=== PATIENT | female | born 1950 | race Caucasian/White ===

== ENCOUNTER 2017-05-23 07:08 | Inpatient (IN) | payer BC ==
[~2017-05-23] VITALS: Ht 172.7 cm; Wt 86.0 kg
--- NOTE | ~2017-05-23 | CO ---
Unit #: [id number] #: [id number] Patient: JOHN FARFAN [id number] [address] [place], [place] [address] [id number] MR#: [id number] NAME: JOHN FARFAN ROOM: 568 Age: 66 Sex: F Admission Date: 05/23/2017 : 1950 Attending Physician: Dayton Acuna M.D. Primary Care Physician: Primary Care Physician No Consultation Date: 05/24/2017 CONSULTATION REPORT PRIMARY CARE PHYSICIAN John Alonzo M.D. REASON FOR CONSULTATION Severe anemia, please evaluate. HISTORY OF PRESENT ILLNESS Ms. John Mercer is a 66-year-old with a history of coronary artery disease, hypertension, type 2 diabetes, who was admitted to the hospital with chest pain and acute shortness of breathing on 05/23/2017. Apparently, on the night of 05/23/2017, she woke up with feeling smothered with a dry cough. She has since had a cardiac catheterization and is scheduled for having a transesophageal echocardiogram tomorrow. Ms. Mercer tells me that she has a long history of anemia and more recently has been eating ice, has started herself on iron tablets, which she takes 2 or 3 times a day. She has had a colonoscopy in the remote past with no significant abnormality identified when she was around 42 years old. Her CBC at the time of admission showed a white count of 6.4, hemoglobin is 8.4, MCV 70.1, her platelet count is 276,000. She has a long history of ice craving. No history of melena or hematochezia. She did have a hemorrhoidectomy 2 years ago, at which point, she was advised to have a colonoscopy, but never did. She has been taking B12 along with metformin for type 2 diabetes, which she has been taking for several years. PAST MEDICAL HISTORY Coronary artery disease, medically managed to this point with a history of mitral and tricuspid regurgitation, pulmonary hypertension. Other medical problems include hypertension, type 2 diabetes mellitus, and hyperlipidemia. PAST SURGICAL HISTORY Includes tubal ligation and breast augmentation. FAMILY HISTORY Negative for blood disorders. SOCIAL HISTORY Quit smoking 4 years ago after smoking 1 or 2 packs a day. She smokes e-cigarettes and currently uses a 3 mg nicotine level, which she plans to discontinue. She drinks one cocktail on a daily basis. REVIEW OF SYSTEMS Fourteen point review of systems was taken. CONSTITUTIONAL: No recent changes in appetite or weight. In fact, she Unit #: [id number] #: [id number] Patient: JOHN FARFAN has gained some weight. EYES: Negative. EARS, NOSE, MOUTH, AND THROAT: Negative. CARDIOVASCULAR: As discussed. RESPIRATORY: Shortness of breathing as discussed. GASTROINTESTINAL: Negative. GENITOURINARY: Negative. ALLERGIC: Negative. LYMPHATIC: Negative. PSYCHIATRIC: Negative. ENDOCRINE: Type 2 diabetes. PHYSICAL EXAMINATION GENERAL: She is a pleasant, middle-aged woman, lying in bed, currently in no distress. VITAL SIGNS: Temperature is 97.9, pulse is 94, respirations 18, blood pressure 151/74, O2 saturation 96% on room air. Accu-Chek was 123. HEENT: Shows mild pallor. No icterus. Pupils are equal and reactive well to light. Mucous membranes are moist. NECK: Without adenopathy, JVD, or thyromegaly. CARDIOVASCULAR: First and second heart sounds are heard and regular without gallops or rubs. She has a soft systolic murmur. LUNGS: Chest expansion is symmetric. Bilateral equal air entry with normal breath sounds. ABDOMEN: Soft and nontender. Bowel sounds are active. No organomegaly. EXTREMITIES: Right arm is bandaged right radial catheterization. Warm with good pulses. No edema, cyanosis or clubbing. NEUROLOGIC: She is awake, alert, and oriented x3 without any focal findings. SKIN: Negative. PSYCHIATRIC: Normal affect. LYMPHATIC: No palpable lymph nodes. DIAGNOSTIC STUDIES LABORATORY RESULTS: CBC today shows a white count of 6.4, hemoglobin is 8.4, platelet count 276,000. MCV 70.1. Basic metabolic panel shows a BUN of 12, creatinine is 0.8. Cholesterol is 126 with an LDL of 39. ASSESSMENT AND PLAN Ms. John Mercer is a 66-year-old with a history of coronary artery disease, admitted with acute heart failure, who has had a repeat cardiac catheterization. She is also severely anemic with microcytic indices with a history of ice craving all of which suggest iron deficiency anemia. In view of her longer metformin usage, B12 deficiency may also be an additional factor to consider, although she has been taking B12 on an intermittent basis. I discussed with her several issues including that she requires upper and lower endoscopy for a GI source of blood loss given her severe iron deficiency anemia, which I will confirm. She is reluctant to have a colonoscopy because of the prep needed and we discussed about alternate methods and I will consult GI to be done as an outpatient. She additionally reports severe headaches for the past several weeks and wonders whether she could have an aneurysm which her father apparently from. I discussed this with her, some of this could be related to the nitroglycerin used for treatment of a heart disease and possibly even iron-deficient anemia be a factor. If headaches persist, I think it will certainly be reasonable to proceed ahead with imaging. RECOMMENDATIONS Unit #: [id number] #: [id number] Patient: JOHN FARFAN 1. Iron studies and B12 to confirm the diagnosis of iron deficiency anemia. 2. Ferrlecit 250 mg IV daily for 2 days with plans to discharge her home on ferrous sulfate mg p.o. t.i.d. 3. Follow up in the office in 2 weeks to evaluate for response to for outpatient GI consultation for endoscopy. Thank you for allowing me to participate in her care. Dictated by... Haseeb Golden/ana paula TD: 05/25/2017 05:55 JOB #: [id number] CC: John Alonzo M.D. CONSULTATION REPORT Page 1 of 1 X Cornelio Bashir MD X CONSULTATION REPORT
--- NOTE | ~2017-05-23 | EKG ---
PATIENT: JOHN FARFAN UNIT #: [id number] Ventricular Rate: 68 BPM Atrial Rate: 68 BPM P-R Interval: 124 ms QRS Duration: 74 ms Q-T Interval: 476 ms QTC Calculation(Bezet): 506 ms P [place]: 46 degrees Calculated R [place]: 54 degrees Calculated T [place]: 42 degrees Diagnosis Line: Sinus rhythm with occasional Premature ventricular Diagnosis Line: complexes Diagnosis Line: Otherwise normal ECG Diagnosis Line: When compared with ECG of 07-JUL-2011 07:04, Diagnosis Line: Premature ventricular complexes are now Present Diagnosis Line: Nonspecific T wave abnormality now evident in Diagnosis Line: Inferior leads Diagnosis Line: Nonspecific T wave abnormality, improved in Diagnosis Line: Lateral leads Diagnosis Line: QT has lengthened Diagnosis Line: Confirmed by TAHIRA LARA MD ([id number]) on 05/23/2017 Diagnosis Line: 5:00:58 PM INTERPRETING MD: JANE SHEEHAN
--- NOTE | ~2017-05-23 | HP ---
Unit #: [id number] #: [id number] Patient: JOHN FARFAN [id number] [facility]. [place] [address] [facility]. [place], [place] [address] [id number] I MR#: [id number] NAME: JOHN FARFAN ROOM: 568 Age: 66 Sex: F Admission Date: 05/23/2017 : 1950 Attending Physician: Dayton Acuna M.D. Primary Care Physician: Primary Care Physician No HISTORY AND PHYSICAL REASON FOR ADMISSION Acute CHF. HISTORY OF PRESENT ILLNESS The patient is a 66-year-old, female, who is an office patient of Dr. Acuna, has a history of cardiac cath after stress test in 2010 that showed mzqq-gp-pfuizeia nonobstructive CAD. Her EF at that time was normal. She had an echocardiogram in our office in March, that showed some moderate mitral valve regurgitation with normal LV function. Yesterday, she had come to an appointment in the office and her blood pressure was 195/80 and she was restarted on Lasix 20 mg daily and lisinopril was increased to twice a day to help control her blood pressure. The patient had not picked up her prescriptions yet. Last night around 1:00 in the morning, she woke up. She felt short of breath. She had significant orthopnea smothering and she has had dry cough for the last two weeks. The patient has risk factors for her heart disease, such as diabetes, hyperlipidemia, and hypertension. The patient complains that since early this morning she has been having a tight banding sensation around the diaphragm area. She also has a history of breast augmentation. Her blood pressure here in the emergency room on arrival was 194/85. PAST MEDICAL HISTORY Significant for coronary artery disease. At that time, she had a distal left main of 40%, proximal circumflex 30% to 40%, ostial LAD 30%, right coronary artery 25% to 30%, moderate mitral valve regurgitation, ejection fraction of 60%, hypertension, diabetes, hyperlipidemia, tubal ligation, breast augmentation as well as mild pulmonary hypertension. SOCIAL HISTORY Tobacco use. She now uses e-cigarette, but it does have nicotine. She drinks one alcoholic beverage a day, which consists of whiskey and Pepsi. No illicit drug use. FAMILY HISTORY Father and mother both have a history of cardiac disorders. DIAGNOSTICS EKG shows sinus rhythm with a single PVC. No significant ST changes. Chest x-ray showed interstitial prominence and cardiomegaly. White blood cell count 7.7, hemoglobin 9.3, hematocrit 29, and platelet count 310. Sodium 142, potassium 3.2, chloride 101, CO2 of 27, BUN 10, creatinine 0.9, glucose 133, BNP 584. Troponin negative x1. Lactic acid is elevated at 2.4. Unit #: [id number] #: [id number] Patient: JOHN FARFAN REVIEW OF SYSTEMS Complains of shortness of breath, orthopnea, and chest tightness. No fever, chills, nausea, vomiting, diarrhea, palpitations, syncope, near syncope, numbness, tingling, or changes in visual field. All other review of systems is negative. PHYSICAL EXAMINATION GENERAL: The patient is awake and alert. No acute distress. Color is pink. SKIN: Warm and dry. VITAL SIGNS: Afebrile, heart rate 83, and blood pressure 194/85. HEENT: Normal carotid upstrokes. No auscultated bruit. Negative JVD. Lying supine. Negative hepatojugular reflux. Pupils are equal, round, and reactive. CHEST: Respirations are regular, unlabored at rest. Bilateral breath sounds, decreased air entry but no rales are heard. HEART: Heart sounds are distant due to breast augmentation. ABDOMEN: Soft, nontender, and nondistended. Positive bowel sounds in all 4 quadrants. No ascites noted. EXTREMITIES: Bilateral lower extremities have no pretibial pitting edema. DP/PT pulses are 2+. Cap refill less than 3 seconds. NEUROLOGIC: No focal, motor, or sensory deficits. IMPRESSION 1. Acute diastolic congestive heart failure. 2. Moderate mitral regurgitation. 3. History of moderate nonobstructive disease on cardiac cath in 2010. 4. Uncontrolled hypertension. 5. Diabetes mellitus. 6. Hyperlipidemia. 7. Mild pulmonary hypertension on recent echo with EF of 60%. PLAN The patient will be admitted for observation. We will replace potassium today. Give IV diuretics x2 doses, then change back to p.o. We will add topical nitrate and hydralazine for blood pressure control. Monitor trend of cardiac enzymes to rule out DC aspirin 81 mg daily. She needs strict I and O, fluid restriction, and 2 g sodium diet. She does not increase her lisinopril yet. I will increase that here in the hospital. We will hold metformin for cath and start on low-dose sliding scale insulin as needed with a.c. and at bedtime Accu-Cheks. I have discussed with the patient the recommendation of left and right coronary angiography to assess mitral valve and rule out coronary artery disease. The risks and benefits of procedures such as allergy, arrhythmia, DC, CVA, bleeding, and have been discussed. The patient is agreeable. We will plan tomorrow. Dictated by Estelita Howell APRN for Haseeb Rogers/ana paula TD: 05/24/2017 07:06 JOB #: [id number] Unit #: [id number] #: [id number] Patient: JOHN FARFAN HISTORY AND PHYSICAL Page 1 of 1 X X HISTORY AND PHYSICAL
--- NOTE | ~2017-05-23 | EKG ---
PATIENT: JOHN FARFAN UNIT #: [id number] Ventricular Rate: 65 BPM Atrial Rate: 65 BPM P-R Interval: 130 ms QRS Duration: 80 ms Q-T Interval: 486 ms QTC Calculation(Bezet): 505 ms P Sterling: 55 degrees Calculated R Sterling: 62 degrees Calculated T Sterling: 51 degrees Diagnosis Line: Normal sinus rhythm Diagnosis Line: Prolonged QT Diagnosis Line: Abnormal ECG Diagnosis Line: When compared with ECG of 23-MAY-2017 07:49, Diagnosis Line: Premature ventricular complexes are no longer Diagnosis Line: Present Diagnosis Line: Confirmed by TAHIRA LARA MD ([id number]) on 05/30/2017 Diagnosis Line: 7:26:41 AM INTERPRETING MD: JANE SHEEHAN
--- NOTE | ~2017-05-23 | HP ---
Unit #: [id number] #: [id number] Patient: JOHN FARFAN [id number] [address] [place], [place] [address] [id number] I MR#: [id number] NAME: JOHN FARFAN ROOM: [id number] Age: 66 Sex: F Admission Date: 05/23/2017 : 1950 Attending Physician: Dayton Acuna M.D. Primary Care Physician: No Primary Care Physician HISTORY AND PHYSICAL REASON FOR ADMISSION Acute CHF. HISTORY OF PRESENT ILLNESS The patient is a 66-year-old female, who is an office patient of Dr. Acuna, has a history of cardiac cath after a stress test in 2010 that showed tmfl-oy-rjycphad nonobstructive CAD. Her EF at that time was normal. She had an echocardiogram in our office in March that showed some moderate mitral valve regurgitation with normal LV function. Yesterday, she had come to an appointment in the office and her blood pressure was 195/80, and she was restarted on Lasix 20 mg daily and lisinopril was increased to twice a day to help control her blood pressure. Patient had not picked up her prescriptions yet. Last night around 1 o'clock in the morning, she woke up. She felt short of breath. She had significant orthopnea, smothering and she has had a dry cough for the last two weeks. Patient has risk factors for heart disease such as diabetes, hyperlipidemia, and hypertension. Patient complains that since early this morning she has been having a tight banding sensation around her chest, around the diaphragm area. Her blood pressure here in the emergency room on arrival was 194/85. PAST MEDICAL HISTORY 1. Coronary artery disease. At that time, she had a distal left main at 40%, proximal circumflex 30% to 40%, ostial LAD 30%, right coronary artery 25% to 30%, moderate mitral valve regurgitation, ejection fraction 60%. 2. Hypertension. 3. Diabetes. 4. Hyperlipidemia. 5. Tubal ligation. 6. Breast augmentation. 7. Mild pulmonary hypertension. SOCIAL HISTORY Tobacco use. She now uses E-cigarette, but it does have nicotine. She drinks one alcoholic beverage a day which consists of whiskey and Pepsi. No illicit drug use. FAMILY HISTORY Father and mother both have a history of cardiac disorders. DIAGNOSTIC STUDIES LABORATORY: White blood cell count 7.7, hemoglobin 9.3, hematocrit 29, platelet count 310,000. Sodium 142, potassium 3.2, chloride 101, CO2 of Unit #: [id number] #: [id number] Patient: JOHN FARFAN 27, BUN 10, creatinine 0.9, glucose 133. BNP 584. Troponin negative x1. Lactic acid is elevated at 2.4. IMAGING: Chest x-ray showed interstitial prominence and cardiomegaly. CARDIOVASCULAR: EKG shows sinus rhythm with a single PVC, no significant ST changes. REVIEW OF SYSTEMS Complaint of shortness of breath, orthopnea, and chest tightness. No fever, chills, nausea, vomiting, diarrhea, palpitations, syncope, near syncope, numbness, tingling, or changes in visual field. All other review of symptoms is negative. PHYSICAL EXAMINATION GENERAL: Patient is awake and alert, no acute distress. SKIN: Color is pink. Skin is warm and dry. VITAL SIGNS: Afebrile, heart rate 83, blood pressure 194/85. HEENT: Pupils equal, round, and reactive. Normal carotid upstrokes. No auscultated bruits. Negative JVD lying supine. Negative hepatojugular reflux. CHEST: Respirations are regular, unlabored at rest. Bilateral breath sounds are decreased air entry but no rales are heard. HEART: S1, S2. Regular rate and rhythm. No murmurs, rubs, or gallops. Heart sounds distant due to breast augmentation. ABDOMEN: Soft, nontender, nondistended. Positive bowel sounds x4 quadrants. No ascites noted. EXTREMITIES: Bilateral lower extremities have no pretibial pitting edema. DP/PT pulses are 2+. Capillary refill less than 3 seconds. NEUROLOGIC: No focal motor or sensory deficits. IMPRESSION 1. Acute diastolic congestive heart failure. 2. Moderate mitral regurgitation. 3. History of moderate nonobstructive disease on cardiac cath in 2010. 4. Uncontrolled hypertension. 5. Diabetes mellitus. 6. Hyperlipidemia. 7. Mild pulmonary hypertension on recent echo with ejection fraction of 60%. PLAN Patient will be admitted for observation. Will replace potassium today. Give IV diuretics x2 doses, then change back to p.o. Will add topical nitrate and hydralazine for blood pressure control. Monitor, trend cardiac enzymes to rule out [place]. Aspirin 81 mg daily. She needs strict I and O, fluid restriction, and 2 g sodium diet. She has not increased her lisinopril yet. I will increase that here in the hospital. Will hold metformin for cath and start on low-dose sliding scale insulin as needed with a.c. and at bedtime Accu-Cheks. Discussed with the patient the recommendation of left and right coronary angiography to assess mitral valve and rule out coronary artery disease. The risks and benefits of procedure such as allergy, arrhythmia, myocardial infarction, cerebrovascular accident, bleeding, and have been discussed. Patient is agreeable. Will plan tomorrow. Unit #: [id number] #: [id number] Patient: JOHN FARFAN Dictated by Estelita Hwoell APRN for Haseeb Rogers TD: 05/23/2017 13:44 JOB #: [id number] HISTORY AND PHYSICAL Page 1 of 1 X X HISTORY AND PHYSICAL
--- NOTE | ~2017-05-23 | DS ---
Unit #: [id number] #: [id number] Patient: JOHN FARFAN [id number] [address] [address] [id number] I MR#: [id number] NAME: JOHN FARFAN ROOM: 568 Age: 66 Sex: F Admission Date: 05/23/2017 : 1950 Discharge Date: 05/25/2017 Attending Physician: Dayton Acuna M.D. Primary Care Physician: Primary Care Physician No DISCHARGE SUMMARY DISCHARGE DIAGNOSES 1. Acute pulmonary edema secondary to uncontrolled hypertension and mitral regurgitation, resolved. 2. Tpcsxpvv-rc-zoomra mitral regurgitation per ETDDY on 05/25/2017. 3. Mild pulmonary hypertension. 4. Hypertension. 5. Hyperlipidemia. 6. Diabetes mellitus type 2. 7. Status post cardiac cath on 05/24/2017, which showed non-obstructive coronary artery disease, djilumlc-nk-hlsgzs pulmonary hypertension, elevated PAP 59/22 mmHg. 8. TEDDY on 05/25/2017 showed mezsyrzp-be-mbxyli mitral regurgitation, EF 60%, and severe atherosclerotic plaque in aorta. 9. New diastolic congestive heart failure. 10. Anemia, anemia workup in progress. DISCHARGE MEDICATIONS Aspirin 81 mg p.o. once a day, calcium carbonate with vitamin D3 tablets one p.o. once a day, potassium chloride 20 mEq p.o. once a day, metformin 500 mg p.o. t.i.d., omega 3 fish oil one tablet p.o. daily, Pravachol 80 mg p.o. at bedtime, Norvasc 5 mg p.o. daily, Lopressor 50 mg p.o. b.i.d., Lasix 40 mg p.o. daily, lisinopril 40 mg p.o. at bedtime, Synthroid 175 mcg p.o. daily, vitamin B complex one tablet p.o. once a day, Rocaltrol 0.25 mcg p.o. t.i.d. HOSPITAL COURSE This is a 66-year-old female who is a patient of Dr. Acuna and was last seen in his office earlier this week on Sunday or Sunday. She has a prior history of a cardiac cath in 2010 that showed xaby-eb-afkggtuh non-obstructive coronary artery disease with a normal EF. ECG done in our office in March showed some moderate mitral valve regurgitation with normal LVF. On 05/22, she came for an appointment in our office and her blood pressure was elevated at 195/80. At that time, she was restarted on her diuretic and her CAR inhibitor was increased to twice a day. The patient states she had been off her diuretic for about 2 weeks because her pharmacy told her it was on back order. The night before admission to the hospital, she woke up with shortness of breath and orthopnea. She also reported a tight banding sensation around her diaphragm area. Her blood pressure in the ER was elevated 194/85. She was admitted for further evaluation and her medications were adjusted. She was diuresed with Lasix 40 mg IV. Her CAR inhibitor and beta-fang were increased. On 05/24, she underwent a cardiac cath, which showed LAD with no significant stenosis, left circumflex is normal, left main distal is 30%, RCA mid 50%. Unit #: [id number] #: [id number] Patient: JOHN FARFAN In addition, she had elevated pulmonary artery pressures 59/22 mmHg and qlnxbowq-qw-klevnn pulmonary hypertension. On 05/25, she underwent a TEDDY to evaluate her valve function. TEDDY revealed an EF of 60% and ztfqhylz-kg-bwakzy mitral regurgitation as well as severe atherosclerotic plaque in her aorta. Today, her breathing is improved. She has no shortness of breath and is chest pain free. She will be discharged home. She is to follow up with Dr. Bashir as outpatient for anemia workup. She is to follow up with Dr. Canas with Cardiovascular Surgery for evaluation of her mitral valve. We spoke with Dr. Canas's office and they are going to contact her to schedule an outpatient appointment. PHYSICAL EXAMINATION VITAL SIGNS: Temperature 98.2, heart rate 88, respiratory rate 16, and blood pressure 126/78. GENERAL: This is an alert and oriented, pleasant 66-year-old female, sitting up in chair, in no acute distress. CARDIOVASCULAR: S1 and S2. Regular rate and rhythm. LUNGS: Clear, diminished at the bases. Nonlabored respirations. ABDOMEN: Soft, nontender, and nondistended. EXTREMITIES: Pulses are palpable. No pedal edema. Right wrist is bruised and soft with no hematoma. NEUROLOGIC: Alert and oriented x3. No neuro deficits noted. DIAGNOSTIC STUDIES LABORATORY RESULTS: Glucose 88, BUN 12, creatinine 0.7, sodium 140, potassium 3.4, chloride 99, magnesium 1.2. Lipid profile; cholesterol 126, triglycerides 69, LDL 39, HDL 73. Hemoglobin 7.9, hematocrit 24.6, white blood cell count 6, and platelets 269. IMAGING RESULTS: Chest x-ray shows emphysema and cardiomegaly. CARDIOVASCULAR STUDIES: EKG shows normal sinus rhythm with a ventricular rate of 65. TEDDY on 05/25/2017 showed EF 60%, lcsvgwun-dd-ppmbqj mitral regurgitation, and severe atherosclerotic plaque in aorta. DISCHARGE INSTRUCTIONS 1. The patient will be discharged to home today. 2. The patient is to follow up with Dr. Bashir in 10 days. 3. Follow up with Dr. Acuna in his office on Sunday, June 25 at 3:00 p.m. 4. Follow up with Dr. Canas. Call his office for an appointment. 5. Post cath instructions given to the patient. 6. Medications per discharge medication rec sheet. Prescriptions were provided to the patient as needed. Dictated by... Snehal Torres APRN for Haseeb Rogers/ana paula TD: 05/28/2017 09:32 JOB #: [id number] Unit #: [id number] #: [id number] Patient: JOHN FARFAN DISCHARGE SUMMARY Page 1 of 1 X X DISCHARGE SUMMARY
--- NOTE | ~2017-05-23 | CR72 ---
[facility]. [facility] A Service of [facility] & [facility] RADIOLOGY TEXT RESULTS PATIENT: JOHN FARFAN LOCATION: [facility] [id number] : [birth year] UNIT #: [id number] AGE: [address]: Dayton Acuna MD SEX: F ORDER DR: [id number] [facility] [address] [place], [place] [address] [id number] MR#: [id number] #: [id number] NAME: JOHN FARFAN : 1950 SEX: F STUDY DATE/TIME: 05/23/2017 7:49 [facility] ROOM: [id number] STUDY DESCRIPTION: CR Chest Single View Portable Attending Physician: Dayton Acuna M.D. Ordering Physician: Tramaine Osullivan M.D. Primary Care Physician: Primary Care Physician No MEDICAL IMAGING REPORT This report is preliminary unless electronic signature is present EXAM Portable chest 05/23 INDICATIONS For history of this morning. Former smoker. FINDINGS AP portable chest was obtained. No comparison. The heart is enlarged. There is emphysema. Bibasilar interstitial prominence could be due to a developing edema or perhaps fibrosis. Comparison with any prior studies would be useful. There are calcified bilateral breast implants. There is no pneumothorax. 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 IMPRESSION Emphysema and cardiomegaly. Interstitial prominence in the bases could reflect early edema but could also reflect fibrosis as I have no comparisons. No pneumothorax. Dictated by... Michael Tobias Jr., M.D. THIS IS AN ELECTRONICALLY VERIFIED REPORT Michael Tobias Jr., M.D. at 05/23/2017 3:38 PM VERN/freddy TD: 05/23/2017 13:42 JOB #: [id number] MEDICAL IMAGING REPORT Page 1 of 1 COPY
[~2017-05-23 07:08] MED LIST: ASPIRIN81 M1 PO; ATARAX PO; CALCITRIOL PO; CALCITRIOL0.25 MCG PO; CALCIUM 500 + D1 TAB PO; CHOLESTEROL PILL; CLONIDINE PO; DARVOCET-N 1001 TAB PO; KEFLEX PO; LEVOTHROID137 MCG PO; LISINOPRIL20 MG PO; LOTREL 5/20 MG1 CAP PO; METFORMIN PO; PRAVASTATIN SOD40 MG PO; SYNTHROID PO
[2017-05-23 08:10] LABS: BASOPHIL# 0.1 X10e3 (0-0.3); BASOPHIL% 0.8 % (0-2.5); EOSINOPHIL# 0.2 X10e3 (0-0.7); EOSINOPHIL% 2.1 % (0.0-7.0); HEMOGLOBIN 9.3 gm/dL (12.0-16.0); LYMPHOCYTE# 1.4 X10e3 (1.0-3.5); LYMPHOCYTE% 18.2 % (17.0-45.0); MEAN CELL VOLUME 70.6 FL (83-96); MEAN CORPUSCULAR HEMOGLOBIN 22.6 PG (28-34); MEAN PLATELET VOLUME 8.5 FL (6.5-11.5); MONOCYTE# 0.7 X10e3 (0-1.0); MONOCYTE% 9.1 % (3.0-12.0); NEUTROPHIL# 5.4 X10e3 (1.5-7.1); NEUTROPHIL% 69.8 % (40-75); PLATELET COUNT 310 X10e3 (140-420); RED BLOOD COUNT 4.11 X10e (3.90-5.30); RED CELL DISTRIBUTION WIDTH 18.3 % (11.0-15.5); WHITE BLOOD COUNT 7.7 X10e3 (4.0-10.5)
[2017-05-23 08:11] LABS: DIFF IND NO
[2017-05-23 08:15] LABS: POC - CKMB 1.6 ng/mL (0.0-7.9); POC - TROPONIN <0.05 ng/mL (<=0.05)
[2017-05-23 08:38] LABS: ALBUMIN SERUM 3.9 g/dL (3.5-5.0); BILIRUBIN, DIRECT 0.1 mg/dL (0.0-0.2); BILIRUBIN,INDIRECT 0.8 mg/dL (0.0-0.9); BILIRUBIN,TOTAL 0.9 mg/dL (0.2-2.0); BUN/CREATININE RATIO 11.11; CALCIUM SERUM 8.1 mg/dL (8.4-10.2); CREATININE SERUM 0.9 mg/dL (0.6-1.4); GLOM FILT RATE Estimated 67.6 mL/min (>60); POTASSIUM 3.2 mmol/L (3.5-5.1); PROTEIN TOTAL SERUM 6.9 g/dL (6.0-8.3)
[2017-05-23] MEDS ORDERED: SYNTHROID175 MCG PO (11:08)
[2017-05-23] MEDS ORDERED: PATIENT'S PHARMACY (11:08)
[2017-05-23] MEDS ORDERED: LISINOPRIL PO (11:09)
[2017-05-23] MEDS ORDERED: METFORMIN PO (11:09)
[2017-05-23] MEDS ORDERED: CALCITRIOL0.25 MCG PO (11:09)
[2017-05-23] MEDS ORDERED: PRAVACHOL PO (11:09)
[2017-05-23] MEDS ORDERED: LOPRESSOR PO (11:09)
[2017-05-23] MEDS ORDERED: ASPIRIN81 M2 PO (11:10)
[2017-05-23] MEDS ORDERED: B COMPLEX1 EACH PO (11:10)
[2017-05-23] MEDS ORDERED: FISH OIL300 MG PO (11:10)
[2017-05-23] MEDS ORDERED: LASIX20 MG PO (11:10)
[2017-05-23] MEDS ORDERED: CALCIUM 500 +1 EAC2 PO (11:10)
[2017-05-23 17:32] LABS: %MB 2.1 % (0.0-4.0); MB 2.9 ng/ml
[2017-05-23 23:16] LABS: MB 2.6 ng/ml
[2017-05-24 06:17] LABS: HEMATOCRIT 26.5 % (35.0-45.0); HEMOGLOBIN 8.4 gm/dL (12.0-16.0); MEAN CELL VOLUME 70.1 FL (83-96); MEAN CORPUSCULAR HEMOGLOBIN 22.2 PG (28-34); MEAN CORPUSCULAR HGB CONC 31.7 g/dL (30-36); MEAN PLATELET VOLUME 8.2 FL (6.5-11.5); RED BLOOD COUNT 3.78 X10e (3.90-5.30); RED CELL DISTRIBUTION WIDTH 18.4 % (11.0-15.5); WHITE BLOOD COUNT 6.4 X10e3 (4.0-10.5)
[2017-05-24 06:29] LABS: INR 1.1; PARTIAL THROMBOPLASTIN TIME 27.1 SECONDS (23.5-31.3); PROTHROMBIN TIME (PATIENT) 11.7 SECONDS (10.0-11.7)
[2017-05-24 06:49] LABS: CALCIUM SERUM 7.8 mg/dL (8.4-10.2); CREATININE SERUM 0.8 mg/dL (0.6-1.4); MAGNESIUM 1.2 mg/dL (1.6-3.0); POTASSIUM 3.5 mmol/L (3.5-5.1)
[2017-05-25 07:25] LABS: BASOPHIL% 0.8 % (0-2.5); EOSINOPHIL# 0.2 X10e3 (0-0.7); EOSINOPHIL% 2.5 % (0.0-7.0); HEMATOCRIT 24.6 % (35.0-45.0); HEMOGLOBIN 7.9 gm/dL (12.0-16.0); LYMPHOCYTE# 1.6 X10e3 (1.0-3.5); LYMPHOCYTE% 26.7 % (17.0-45.0); MEAN CELL VOLUME 69.9 FL (83-96); MEAN CORPUSCULAR HEMOGLOBIN 22.6 PG (28-34); MEAN CORPUSCULAR HGB CONC 32.3 g/dL (30-36); MEAN PLATELET VOLUME 8.5 FL (6.5-11.5); MONOCYTE# 0.7 X10e3 (0-1.0); NEUTROPHIL# 3.5 X10e3 (1.5-7.1); PLATELET COUNT 269 X10e3 (140-420); RED BLOOD COUNT 3.52 X10e (3.90-5.30); RED CELL DISTRIBUTION WIDTH 18.2 % (11.0-15.5)
[2017-05-25 07:30] LABS: DIFF IND YES
[2017-05-25 07:37] LABS: FERRITIN 26 ng/mL (11-307)
[2017-05-25 07:43] LABS: BUN/CREATININE RATIO 17.14; CALCIUM SERUM 7.5 mg/dL (8.4-10.2); CREATININE SERUM 0.7 mg/dL (0.6-1.4); GLOM FILT RATE Estimated 91.6 mL/min (>60); MAGNESIUM 1.2 mg/dL (1.6-3.0); POTASSIUM 3.4 mmol/L (3.5-5.1)
[2017-05-25 07:58] LABS: PLATELET ESTIMATE NORMAL (NORMAL)
[2017-05-25 08:03] LABS: IRON SERUM 316 ug/dL (28-170); TOTAL IRON BINDING CAPACITY 373 ug/dL (269-535); TRANSFERRIN 267 mg/dL (192-382); TRANSFERRIN SATURATION 85 % (20-50)
[2017-05-25] MEDS ORDERED: LASIX PO (12:40)
[2017-05-25] MEDS ORDERED: IRON PO (12:40)
[2017-05-25] MEDS ORDERED: K-DUR20 ME1 PO (12:45)
[2017-05-25] MEDS ORDERED: NORVASC PO (12:45)
[2017-05-25] MEDS ORDERED: LOPRESSOR PO (12:46)
== END 2017-05-25 19:03 | disposition home or self-care (01) | DRG 287 ==
LOC: CED 07:08 → CEDOF 10:15 → C5C 10:15 → CEDOF 11:50 → CED 11:50 → C5C 15:27
PROVIDERS: Internal Medicine Cardiovascular Disease; Internal Medicine Hematology & Oncology; Physician Assistant
PROC: 4A023N6 Measurement of Cardiac Sampling and Pressure, Right Heart, Percutaneous Approach (ICD-10-PCS; principal; 2017-05-24)
PROC: B211YZZ Fluoroscopy of Multiple Coronary Arteries using Other Contrast (ICD-10-PCS; 2017-05-24)
PROC: B215YZZ Fluoroscopy of Left Heart using Other Contrast (ICD-10-PCS; 2017-05-24)
PROC: B24BZZ4 Ultrasonography of Heart with Aorta, Transesophageal (ICD-10-PCS; 2017-05-25)
DX: I11.0 Hypertensive heart disease with heart failure (principal); I27.2 Other secondary pulmonary hypertension; K92.2 Gastrointestinal hemorrhage, unspecified; E78.5 Hyperlipidemia, unspecified; E11.9 Type 2 diabetes mellitus without complications; D50.9 Iron deficiency anemia, unspecified; F17.290 Nicotine dependence, other tobacco product, uncomplicated; I25.10 Atherosclerotic heart disease of native coronary artery without angina pectoris; I34.0 Nonrheumatic mitral (valve) insufficiency; I50.31 Acute diastolic (congestive) heart failure; I70.0 Atherosclerosis of aorta; Z82.49 Family history of ischemic heart disease and other diseases of the circulatory system; Z98.51 Tubal ligation status
CPT/HCPCS: 36415; 71010; 80048; 80061; 80076; 82550; 82553; 82607; 82728; 82810; 82947; 83540; 83550; 83605; 83735; 83880; 84484; 85025; 85027; 85610; 85730; 87040; 93005; 93312; 94640; 99152; 99153; 99285; C1769; C1887; C1894; J1644; J1815; J1940; J2250; J2916; J3010; J3475